=== PATIENT | male | born 1985 | race Caucasian/White ===

== ENCOUNTER 2024-11-09 11:25 | Emergency (ER) | payer MEDICAID, OTHER ==
[~2024-11-09] VITALS: Ht 175.3 cm; Wt 127.0 kg
[2024-11-09 11:36] VITALS: BP 128/93
[2024-11-09] MEDS ORDERED: NAPR-1009 PO (13:05)
[2024-11-09 13:16] VITALS: BP 128/93; O2SAT 96
== END 2024-11-09 13:16 | disposition home or self-care (01) ==
LOC: ER 11:25
DX: M77.32 Calcaneal spur, left foot (principal); M76.62 Achilles tendinitis, left leg; E11.9 Type 2 diabetes mellitus without complications; E78.5 Hyperlipidemia, unspecified; G89.29 Other chronic pain; I10 Essential (primary) hypertension; M25.572 Pain in left ankle and joints of left foot; Z98.1 Arthrodesis status; Z87.39 Personal history of other diseases of the musculoskeletal system and connective tissue; Z88.8 Allergy status to other drugs, medicaments and biological substances
CPT/HCPCS: 73610; 73630; A4606; A4663